=== PATIENT | male | born 1990 | race American Indian/Alaskan Native ===

== ENCOUNTER 2017-09-10 10:47 | Emergency (ER) | payer SELFPAY ==
[2017-09-10] MEDS ORDERED: BOOSTRIX IM ONE (15:18)
[2017-09-10] MEDS ORDERED: CLEOCIN 600 MG/50 mL 600 MG/50 ML BAG IV ONE (15:18)
--- NOTE | 2017-09-10 15:24 | Emergency Department Report ---
ED General Adult HPI - General Chief complaint: Skin/Abscess/Foreign Body Stated complaint: INGROWN HAIR UNDER NECK Time Seen by Provider: 09/10/17 15:11 Source: patient Mode of arrival: Ambulatory Limitations: No Limitations - History of Present Illness Initial comments: PT c/o having an infected hair bump x 1 week. PT states he tried popping it and he was able to get some drainage expressed, however the swelling has increased. PT states he went to 2 days ago and was started on antibiotics. PT was told if not improved to go to ED. PT states site is increasing. PT denies f, c, n, v PT denies trouble swallowing or throat swelling. MD Complaint: abscess -: Gradual Location: neck Radiation: non-radiation Severity scale (0 -10): 5 Quality: constant, other (tender ) Consistency: constant Associated Symptoms: rash. denies: fever/chills, nausea/vomiting, shortness of breath Treatments Prior to Arrival: other (antibiotics ) - Related Data Previous Rx's Medication Instructions Recorded Last Taken Type Acetaminophen/Codeine [Tylenol #3] 1 tab PO Q6H PRN #12 tab 09/10/17 Unknown Rx Clindamycin [Clindamycin CAP] 300 mg PO Q8H #30 cap 09/10/17 Unknown Rx Ibuprofen [Motrin] 600 mg PO Q8H PRN #15 tablet 09/10/17 Unknown Rx Allergies Allergy/AdvReac Type Severity Reaction Status Date / Time No Known Allergies Allergy Verified 09/10/17 11:33 ED Review of Systems ROS: Stated complaint: INGROWN HAIR UNDER NECK Other details as noted in HPI Comment: All other systems reviewed and negative Constitutional: denies: chills, fever Gastrointestinal: denies: nausea, vomiting Musculoskeletal: other (neck pain ) Skin: rash, change in color ED Past Medical Hx - Past Medical History Previous Medical History?: No - Surgical History Past Surgical History?: No - Social History Smoking Status: Current Every Day Smoker Substance Use Type: Alcohol - Medications Home Medications: Home Medications Medication Instructions Recorded Confirmed Last Taken Type Acetaminophen/Codeine [Tylenol #3] 1 tab PO Q6H PRN #12 tab 09/10/17 Unknown Rx Clindamycin [Clindamycin CAP] 300 mg PO Q8H #30 cap 09/10/17 Unknown Rx Ibuprofen [Motrin] 600 mg PO Q8H PRN #15 tablet 09/10/17 Unknown Rx ED Physical Exam - General Limitations: No Limitations General appearance: alert, in no apparent distress - Head Head exam: Present: atraumatic, normocephalic, normal inspection - Eye Eye exam: Present: normal appearance, PERRL, EOMI. Absent: conjunctival injection - ENT ENT exam: Present: normal exam, mucous membranes moist, normal external ear exam - Neck Neck exam: Present: tenderness, full ROM, lymphadenopathy, other (10 cm x 4 cm indurated, tender area to R lateral neck - unable to palpate fluid collection ) . Absent: normal inspection, meningismus - Respiratory Respiratory exam: Present: normal lung sounds bilaterally. Absent: respiratory distress, wheezes, rales, rhonchi - Cardiovascular Cardiovascular Exam: Present: regular rate, normal rhythm, normal heart sounds - Extremities Exam Extremities exam: Present: normal inspection, full ROM - Back Exam Back exam: Present: normal inspection, full ROM - Neurological Exam Neurological exam: Present: alert, oriented X3, normal gait - Psychiatric Psychiatric exam: Present: normal affect, normal mood - Skin Skin exam: Present: warm, dry, intact, other (large firm abscess to lateral R neck ). Absent: normal color ED Course Vital Signs 09/10/17 09/10/17 11:31 16:57 Temperature 98.8 F 99.1 F Pulse Rate 75 71 Respiratory 16 18 Rate Blood Pressure 119/77 Blood Pressure 122/77 [Right] O2 Sat by Pulse 98 Oximetry - Reevaluation(s) Reevaluation #1: 09/10/17 15:25 PT also seen by Dr Alonso who advises I and D Reevaluation #2: 09/10/17 18:01 Attempted to locate fluid collection with bedside US. Unable to locate. Reevaluation #3: 09/10/17 19:09 Dr Alonso states for superfical abscess, treat with po clindamycin. No deep involvement or necrotic nodes. PT instructed to do warm compresses multiple times a day. PT instructed to refrain from smoking. PT aware he will need to return to the ED in two days for wound recheck, strict return precautions given. PT verbalizes understanding. 09/10/17 19:37 abscess was ill defined on CT, not palpable, risk vs benefit of drainage reviewed with pt. Will not drain in ED. - Pulse Oximetry Interpretation Digit-Finger Initial Pulse Oximetry Readin Actions Taken: none ED Medical Decision Making - Lab Data Result diagrams: 09/10/17 15:29 09/10/17 15:29 Lab Results 09/10/17 09/10/17 09/10/17 Range/Units 15:29 15:29 15:29 WBC 11.5 H (4.5-11.0) K/mm3 RBC 5.47 H (3.65-5.03) M/mm3 Hgb 16.2 H (11.8-15.2) gm/dl Hct 49.0 H (35.5-45.6) % MCV 90 (84-94) fl MCH 30 (28-32) pg MCHC 33 (32-34) % RDW 13.3 (13.2-15.2) % Plt Count 247 (140-440) K/mm3 Lymph % (Auto) 10.3 L (13.4-35.0) % [place] % (Auto) 5.4 (0.0-7.3) % Eos % (Auto) 0.7 (0.0-4.3) % Baso % (Auto) 0.3 (0.0-1.8) % Lymph # 1.2 (1.2-5.4) K/mm3 [place] # 0.6 (0.0-0.8) K/mm3 Eos # 0.1 (0.0-0.4) K/mm3 Baso # 0.0 (0.0-0.1) K/mm3 Seg Neutrophils % 83.3 H (40.0-70.0) % Seg Neutrophils # 9.5 H (1.8-7.7) K/mm3 Sodium 137 (137-145) mmol/L Potassium 4.6 (3.6-5.0) mmol/L Chloride 100.5 (98-107) mmol/L Carbon Dioxide 24 (22-30) mmol/L Anion Gap 17 mmol/L BUN 13 (9-20) mg/dL Creatinine 1.1 (0.8-1.5) mg/dL Estimated GFR > 60 ml/min BUN/Creatinine Ratio 12 % Glucose 131 H (75-100) mg/dL Lactic Acid 1.50 (0.7-2.0) mmol/L Calcium 9.6 (8.4-10.2) mg/dL - Radiology Data Radiology results: report reviewed CT soft tissue neck - no deep structure involvement - ill defined 2 cm abscess R infrahyoid - Differential Diagnosis abscess, cellulitis Critical Care Time: No Critical care attestation.: If time is entered above; I have spent that time in minutes in the direct care of this critically ill patient, excluding procedure time. ED Disposition Clinical Impression: Abscess or cellulitis, neck, Need for Tdap vaccination Disposition: TO HOME OR SELFCARE Is pt being admited?: No Does the pt Need Aspirin: No Condition: Stable Instructions: Cellulitis (ED), Abscess (ED) Additional Instructions: Warm compresses multiple times a day Take Clindamycin with food Return in 2 days for recheck Return sooner if worsening (swelling, redness, fever, chills, nausea or vomiting ) Please refrain from smoking No driving or alcohol or working after taking Tylenol #3 Do not pick or squeeze skin No shaving at this time Prescriptions: Acetaminophen/Codeine [Tylenol #3] 1 tab PO Q6H PRN #12 tab PRN Reason: Pain , Severe (7-10) Clindamycin [Clindamycin CAP] 300 mg PO Q8H #30 cap Ibuprofen [Motrin] 600 mg PO Q8H PRN #15 tablet PRN Reason: Pain Referrals: VICENTE LARIOS DO [Primary Care Provider] - 3-5 Days ROSALIND ESTRADA MD [Staff Physician] - 3-5 Days ESTEFANIA KHOURY MD [Staff Physician] - 3-5 Days Forms: Work/School Release Form(ED) Time of Disposition: 19:26
[2017-09-10 15:53] LABS: Basophils % (Auto) 0.3 % (0.0-1.8); Eosinophils % (Auto) 0.7 % (0.0-4.3); Hemoglobin 16.2 gm/dl (11.8-15.2); Mean Corpuscular HGB Conc 33 % (32-34); Mean Corpuscular Hemoglobin 30 pg (28-32); Mean Corpuscular Volume 90 fl (84-94); Platelet Count 247 K/mm3 (140-440); Red Blood Count 5.47 M/mm3 (3.65-5.03); Red Cell Distribution Width 13.3 % (13.2-15.2); White Blood Count 11.5 K/mm3 (4.5-11.0)
[2017-09-10 16:05] LABS: Anion Gap 17 mmol/L; BUN/Creatinine Ratio 12; Blood Urea Nitrogen 13 mg/dL (9-20); Calcium 9.6 mg/dL (8.4-10.2); Carbon Dioxide 24 mmol/L (22-30); Chloride 100.5 mmol/L (98-107); Glucose 131 mg/dL (75-100); Potassium 4.6 mmol/L (3.6-5.0); Sodium 137 mmol/L (137-145)
[2017-09-10] MEDS ORDERED: TORADOL IV ONE (16:11)
[2017-09-10 16:58] VITALS: BP 122/77
[2017-09-10] MEDS ORDERED: NACL ONE (18:21)
--- NOTE | 2017-09-10 19:00 | Cat Scan Report ---
FINAL REPORT EXAM: CT NECK W CON HISTORY: large cellulitic, abscess R neck TECHNIQUE: Axial images were performed from the skullbase to the thoracic inlet following IV contrast administration. Multiplanar reformats are performed on the acquisition scanner. Total exam DLP 851.61 mGy-cm FINDINGS: There is an ill-defined peripherally enhancing right neck abscess measuring 2 x 1.5 x 1.7 centimeters, at the level of the infrahyoid neck/level 3, superficial to the platysma. There is stranding of the investing fascia. There is diffuse cervical adenopathy. The imaged intracranial contents are unremarkable. The nasopharynx and oropharynx have a normal appearance with prominent adenoids. The airway is not compromised. The vasculature is normal. There is normal alignment of the cervical vertebra. Bilateral middle turbinate frantz bullosa. Clear imaged lung apices. IMPRESSION: 2.0 x 1.5 x 1.7 centimeter right infrahyoid neck superficial ill-defined peripherally enhancing abscess. Diffuse mild cervical adenopathy. No necrotic adenopathy. No airway compromise.
== END 2017-09-10 19:34 | disposition home or self-care (01) ==
LOC: ED 10:47
DX: L02.11 Cutaneous abscess of neck (principal); L03.221 Cellulitis of neck; F17.200 Nicotine dependence, unspecified, uncomplicated
CPT/HCPCS: 36415; 70491; 80048; 82140; 85025; 87040; 90471; 90715; 96365; 96375; 99284; J1885; Q9967